=== PATIENT | male | born 1960 | race Caucasian/White ===

== ENCOUNTER 2018-06-02 07:11 | Outpatient (CLI) | payer BC ==
--- NOTE | 2018-06-02 08:16 | CT ---
FCT NECK SOFT TISSUES, WITH CONTRAST: CLINICAL INDICATION: Neck mass, palpable right-sided lymph node COMPARISON: No prior comparison imaging FINDINGS: Aerodigestive tract: No discrete evidence of an intrinsic mass. Mass: 2.8 cm hypodense mass vs lymph node of the right level IIA zone. 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 Correlation with FNA sampling may be obtained as clinically necessary.
[2018-06-02] MEDS ORDERED: Iopamidol 370 76% 100 ML VIAL ONE (09:00)
== END 2018-06-02 07:12 | disposition home or self-care (01) ==
LOC: SCSCT 07:11
PROVIDERS: ATTEND Otolaryngology Plastic Surgery within the Head & Neck
DX: R22.1 Localized swelling, mass and lump, neck (principal)
CPT/HCPCS: 70491; Q9967

== ENCOUNTER 2018-06-22 09:30 | Day surgery (SDC) | payer BC ==
[2018-06-21 13:54] VITALS: BMI 42.8
[2018-06-22] MEDS ORDERED: Lidocaine 1% w/Epinephrine 1:100K 20 ML VIAL ONE (13:29)
[2018-06-22] MEDS ORDERED: Fentanyl 100 MCG/2 ML VIAL ONE ×2 (13:35→16:06)
[2018-06-22] MEDS ORDERED: Dexamethasone 20 MG/5 ML VIAL ONE (15:55)
[2018-06-22] MEDS ORDERED: Rocuronium Bromide 10 MG/ML (10ML VIAL) ONE (15:55)
[2018-06-22] MEDS ORDERED: Ondansetron PF 4 MG/2 ML Vial ONE (15:55)
[2018-06-22] MEDS ORDERED: Glycopyrrolate 0.2 MG/ML 5 ML SYRINGE ONE (15:55)
[2018-06-22] MEDS ORDERED: Lidocaine 1% PF 5 ML VIAL ONE (15:55)
[2018-06-22] MEDS ORDERED: PROPOFOL 200 MG/20 ML VIAL ONE (15:55)
[2018-06-22] MEDS ORDERED: Promethazine HCl 25 MG/ML VIAL IM PRN (17:09)
[2018-06-22] MEDS ORDERED: Ondansetron HCl/PF 4 MG/2 ML Vial IVP PRN (17:09)
[2018-06-22] MEDS ORDERED: Promethazine HCl 25 MG/ML VIAL SLOW IVP PRN (17:09)
--- NOTE | 2018-06-24 07:13 | EKG ---
Test Reason : PREOP Blood Pressure : / mmHG Vent. Rate : 073 BPM Atrial Rate : 073 BPM P-R Int : 178 ms QRS Dur : 096 ms QT Int : 366 ms P-R-T Axes : 056 027 038 degrees QTc Int : 403 ms Sinus rhythm with Premature atrial complexes Otherwise normal ECG No previous ECGs available Confirmed by WAYNE SALAZAR ([id number]) on 06/24/2018 7:12:55 AM Referred By: CHITO Confirmed By:WAYNE SALAZAR
--- NOTE | 2018-06-24 08:14 | OP ---
DATE OF PROCEDURE: 06/22/2018 PREOPERATIVE DIAGNOSIS: Right branchial cleft cyst. POSTOPERATIVE DIAGNOSIS: Right branchial cleft cyst. PROCEDURE PERFORMED: Excision of right branchial cleft cyst (second branchial cleft type). ESTIMATED BLOOD LOSS: 10 mL. COMPLICATIONS: None. ANESTHESIA: GETA. DESCRIPTION OF PROCEDURE: The patient was taken to the operating room and placed supine on the table. General endotracheal anesthesia was obtained by the Anesthesia staff. Tube was secured in the left lower lip. Shoulder roll was placed. The patient was prepped and draped in standard surgical procedure, exposing the right neck. Following this, a 3-cm incision was made approximately 2 cm below the angle of the mandible. It was carried to skin, subcutaneous tissue, and the platysmal layer. Subplatysmal flaps were elevated superiorly and inferiorly and dissection was carried anterior to the sternocleidomastoid muscle. A 2.5 x 3 cm cystic mass was encountered and dissection was taken immediately around the cyst. The cyst was then released medially. It was noted to have a small scar tract extending between the internal and external carotid artery. The scar tract was dissected through this area until there was no further remnant of this cystic tract. Following this, the mass was removed. The wound was irrigated. A small drain was placed and Monocryl stitches were used to reapproximate the platysma layer and the subcuticular layer, and Dermabond was placed on the skin. The patient tolerated the procedure well. Job ID: [id number]
== END 2018-06-22 18:45 | disposition home or self-care (01) ==
LOC: SDC 09:30
PROVIDERS: ATTEND Otolaryngology Plastic Surgery within the Head & Neck
PROC: 0WB60ZZ Excision of Neck, Open Approach (ICD-10-PCS; principal; 2018-06-22)
DX: Q18.0 Sinus, fistula and cyst of branchial cleft (principal); I10 Essential (primary) hypertension; E78.00 Pure hypercholesterolemia, unspecified; H91.93 Unspecified hearing loss, bilateral; Z97.4 Presence of external hearing-aid; Z79.82 Long term (current) use of aspirin; Z79.899 Other long term (current) drug therapy
CPT/HCPCS: 88304; 93005; 93010; J1100; J2001; J2405; J2704; J3010

== ENCOUNTER 2018-06-23 14:04 | Outpatient (CLI) | payer BC | END 2018-06-23 14:05 | disposition home or self-care (01) | LOC: CTENTCT 14:04 | PROVIDERS: ATTEND Otolaryngology Plastic Surgery within the Head & Neck | DX: J32.9 Chronic sinusitis, unspecified (principal) | CPT/HCPCS: 70486 ==

== ENCOUNTER 2018-08-17 10:12 | Day surgery (SDC) | payer BC ==
[2018-08-16 13:27] VITALS: BMI 29.4
[2018-08-17] MEDS ORDERED: Oxymetazoline HCl 0.05% ( 15 ML ) ONE ×2 (10:57→12:28)
[2018-08-17] MEDS ORDERED: Bacitracin Zinc Ointment 30 gm TUBE ONE (12:28)
[2018-08-17] MEDS ORDERED: Lidocaine 1% w/Epinephrine 1:100K 20 ML VIAL ONE (12:28)
[2018-08-17] MEDS ORDERED: HYDROmorphone 2 MG/ML VIAL ONE (13:02)
[2018-08-17] MEDS ORDERED: Fentanyl 100 MCG/2 ML VIAL ONE (13:02)
[2018-08-17] MEDS ORDERED: Labetalol HCl 100 MG/20 ML VIAL ONE (15:00)
[2018-08-17] MEDS ORDERED: Metoclopramide HCl 10 MG/2 ML VIAL ONE (15:08)
[2018-08-17] MEDS ORDERED: Rocuronium Bromide 10 MG/ML (10ML VIAL) ONE (15:08)
[2018-08-17] MEDS ORDERED: PROPOFOL 200 MG/20 ML VIAL ONE (15:08)
[2018-08-17] MEDS ORDERED: Lidocaine 1% PF 5 ML VIAL ONE (15:08)
[2018-08-17] MEDS ORDERED: Ondansetron PF 4 MG/2 ML Vial ONE (15:08)
[2018-08-17] MEDS ORDERED: Glycopyrrolate 0.2 MG/ML 5 ML SYRINGE ONE (15:08)
[2018-08-17] MEDS ORDERED: Dexamethasone 20 MG/5 ML VIAL ONE (15:08)
[2018-08-17] MEDS ORDERED: hydrALAZINE 20 MG/ML VIAL ONE (15:21)
--- NOTE | 2018-08-17 18:23 | OP ---
DATE OF PROCEDURE: 08/17/2018 PREOPERATIVE DIAGNOSES: 1. Chronic rhinosinusitis. 2. Nasal septal deviation. 3. Acquired nasal deformity. 4. Bilateral inferior turbinate hypertrophy. 5. Nasal obstruction. POSTOPERATIVE DIAGNOSES: 1. Chronic rhinosinusitis. 2. Nasal septal deviation. 3. Acquired nasal deformity. 4. Bilateral inferior turbinate hypertrophy. 5. Nasal obstruction. PROCEDURES PERFORMED: 1. Bilateral endoscopic sinus surgery, total ethmoidectomies. 2. Bilateral endoscopic sinus surgery, maxillary antrostomies. 3. Bilateral endoscopic sinus surgery, frontal sinusotomies. 4. Nasal septoplasty. 5. Bilateral inferior turbinate submucosal resection. ESTIMATED BLOOD LOSS: 50 mL. COMPLICATIONS: None. ANESTHESIA: GETA. DESCRIPTION OF PROCEDURE: The patient was taken to the operating room and placed supine on the table. General endotracheal anesthesia was obtained by the anesthesia staff. Tube was secured in the midline of the left lower lip. Following this, the patient was placed in the beachchair position, and Afrin pledgets were placed in the nasal cavity. 1% lidocaine with 1:100,000 epinephrine was injected into the nasal septum, inferior turbinates, middle turbinates, and lateral nasal wall bilaterally. Following this, the 0-degree endoscope was advanced in the middle meatus. Middle turbinates were gently medialized using a [place] elevator. Following this, the uncinate process was exposed and was anteriorly fractured using a ball-ended probe bilaterally. The uncinate process was then removed using the 0-degree and 40-degree microdebrider blade bilaterally. Following this, the natural maxillary sinus ostia was gently palpated using the ball-ended probe. Following this, the 40-degree microdebrider blade and straight [place]akesley forceps were used to widen the maxillary sinus ostia bilaterally. Following this, the ethmoidal bulla was identified and was punctured on its medial and inferior aspects using the 0-degree microdebrider. The 0-degree microdebrider and the up-biting Blakesley forceps used to open the ethmoidal bulla cells. Following this, the grand lamella was identified and was punctured into the posterior ethmoidal cells. Working from posterior to anterior, the ethmoidal cells were opened in a mucosal sparing technique. Following this, a 45-degree endoscope along with 40-degree microdebrider blade were used to further open the anterior ethmoidal cells and expose the frontal sinus ostia bilaterally. The frontal sinus ostia were then widened using the curved microdebrider bilaterally. Following this, a [place]-type incision was made on the left nasal septum. Submucoperichondrial dissection was performed. The caudal strut had a 90 degrees atrophic segment of cartilage, creating nasal obstruction and a very poor caudal strut. Therefore, a [place] septoplasty technique was created. Submucoperichondrial dissection was performed bilaterally. Following this, the deviated portions of the cartilage and bone were then resected and removed, leaving a generous 2 cm dorsal strut. The atrophic and weak caudal strut was removed, and a new caudal strut was then placed between the medial footplates of the lower lateral cartilages. This was then secured into a pocket that was created with curved scissors using a 3-0 Monocryl stitch. Following this, mucoperichondrial flaps were then reapproximated to their normal anatomic position and were reapproximated using a chromic gut stitch. Inferior turbinates were then punctured on the anterior and inferior aspects, and submucosal microdebrider was used to submucosally resect the anterior and inferior portions of the inferior turbinates bilaterally. The patient tolerated the procedure well. Job ID: [id number]
== END 2018-08-17 18:00 | disposition home or self-care (01) ==
LOC: SDC 10:12
PROVIDERS: ATTEND Otolaryngology Plastic Surgery within the Head & Neck
PROC: 099Q8ZZ Drainage of Right Maxillary Sinus, Via Natural or Artificial Opening Endoscopic (ICD-10-PCS; principal; 2018-08-17)
PROC: 09BL8ZZ Excision of Nasal Turbinate, Via Natural or Artificial Opening Endoscopic (ICD-10-PCS; principal; 2018-08-17)
PROC: 09BM8ZZ Excision of Nasal Septum, Via Natural or Artificial Opening Endoscopic (ICD-10-PCS; principal; 2018-08-17)
PROC: 099R8ZZ Drainage of Left Maxillary Sinus, Via Natural or Artificial Opening Endoscopic (ICD-10-PCS; principal; 2018-08-17)
DX: J32.8 Other chronic sinusitis (principal); J34.2 Deviated nasal septum; J34.3 Hypertrophy of nasal turbinates; J34.89 Other specified disorders of nose and nasal sinuses; M95.0 Acquired deformity of nose; Q18.0 Sinus, fistula and cyst of branchial cleft; I10 Essential (primary) hypertension; E78.00 Pure hypercholesterolemia, unspecified; Z79.82 Long term (current) use of aspirin; Z79.899 Other long term (current) drug therapy
CPT/HCPCS: J0360; J1100; J1170; J2001; J2405; J2704; J2765; J3010